=== PATIENT | female | born 1955 | race Caucasian/White ===

== ENCOUNTER 2017-08-02 20:17 | Inpatient (IN) | payer MEDICARE, OTHER ==
[2017-08-02] MEDS: SOD CHLORIDE 0.9% 1,000 ML IV ×2 (20:54→22:53)
[2017-08-02 21:50] LABS: WHITE BLOOD COUNT 7.9 10^3/ul (4.8-10.8)
[2017-08-02 21:50] LABS: ADD MAN DIFF? NO
[2017-08-02 21:51] LABS: BASOPHILS % 0.5 % (0.0-2.0); EOSINOPHILS # 0.1 10^3/ul (0.0-0.5); EOSINOPHILS % 1.1 % (0.0-7.0); HEMATOCRIT 34.3 % (37.0-47.0); HEMOGLOBIN 11.6 g/dl (12.0-16.0); LYMPHOCYTES % 25.1 % (15.0-51.0); MEAN CORPUSCULAR HEMOGLOBIN 31.4 pg (29.0-33.0); MEAN CORPUSCULAR HGB CONC 33.8 g/dl (32.0-37.0); MEAN PLATELET VOLUME 10.5 fl (7.4-10.4); MONOCYTE # 0.7 10^3/ul (0.3-0.9); MONOCYTES % 9.2 % (0.0-11.0); NEUTROPHIL # 5.1 10^3/ul (1.6-7.5); NEUTROPHILS % 63.6 % (39.0-77.0); PLATELET COUNT 204 10^3/UL (140-415); RED BLOOD COUNT 3.69 10^6/ul (4.20-5.40); RED CELL DISTRIBUTION WIDTH 12.1 % (11.5-14.5)
[2017-08-02 22:13] LABS: INR 1.05; PARTIAL THROMBOPLASTIN TIME 28.9 Sec (25.0-35.0); PROTIME 13.8 Sec (11.9-14.9); PT RATIO 1.1
[2017-08-02 22:16] LABS: LACTIC ACID 1.1 mmol/L (0.5-2.0)
[2017-08-02 22:20] LABS: ALANINE AMINOTRANSFERASE 30 IU/L (13-69); ALBUMIN 3.5 g/dl (3.3-4.9); ALBUMIN/GLOBULIN RATIO 1.09; ALKALINE PHOSPHATASE 67 IU/L (42-121); ANION GAP 12 (8-16); ASPARTATE AMINO TRANSFERASE 66 IU/L (15-46); BILIRUBIN,INDIRECT 0.5 mg/dl (0-1.1); BILIRUBIN,TOTAL 0.5 mg/dl (0.2-1.3); BLOOD UREA NITROGEN 32 mg/dl (7-20); CALCIUM 9.5 mg/dl (8.4-10.2); CARBON DIOXIDE 29 mmol/L (21-31); CHLORIDE 104 mmol/L (97-110); CREATININE 1.51 mg/dl (0.44-1.00); GLUCOSE 96 mg/dl (70-220); POTASSIUM 3.9 mmol/L (3.5-5.1); SODIUM 141 mmol/L (135-144); TOTAL PROTEIN 6.7 g/dl (6.1-8.1)
[2017-08-02 22:28] LABS: CREATINE KINASE 2448 IU/L (23-200)
[2017-08-02 22:32] LABS: CK INDEX 1.4
[2017-08-02 22:33] LABS: TROPONIN-I < 0.012 ng/ml (0.000-0.120)
[2017-08-02 22:37] LABS: FREE THYROXINE INDEX (Calc) 3.24 ug/ml (0.65-3.89); T3 UPTAKE 32.1 % (23.5-40.5); T4 (THYROXINE) 10.1 ug/dl (5.5-11.0)
[2017-08-02 22:38] LABS: URINE BLOOD (Dip) POC Trace-lysed (NEGATIVE); URINE GLUCOSE (Dip) POC Negative (NEGATIVE); URINE KETONES (Dip) POC Negative (NEGATIVE); URINE LEUKOCYTE EST (Dip) POC Negative (NEGATIVE); URINE NITRITE (Dip) POC Positive (NEGATIVE); URINE TOTAL PROTEIN POC Negative (NEGATIVE)
[2017-08-02] MEDS: LORAZEPAM 2 MG INJ IV ×2 (22:52→22:55)
[2017-08-02] MEDS ORDERED: ACETAMINOPHEN 325 MG TAB PO (23:00)
[2017-08-02] MEDS ORDERED: ONDANSETRON 4 MG INJ IV (23:00)
[2017-08-02] MEDS ORDERED: morphine 2 MG INJ IV (23:00)
[2017-08-02] MEDS ORDERED: HYDROCODONE/APAP (5/325) TAB PO (23:00)
[2017-08-02] MEDS ORDERED: NACL 0.9% 3 ML SYG IV (23:00)
[2017-08-02] MEDS ORDERED: ONDANSETRON 4 MG TAB PO (23:00)
[2017-08-02 23:05] LABS: ADD UMIC YES; UR ASCORBIC ACID NEGATIVE (NEGATIVE); UR BACTERIA FEW /HPF (NONE SEEN); UR BILIRUBIN (Dip) NEGATIVE (NEGATIVE); UR BLOOD (Dip) 1+ mg/dL (NEGATIVE); UR CLARITY SLIGHTLY CLOUDY (CLEAR); UR COLOR YELLOW (YELLOW); UR GLUCOSE (Dip) NEGATIVE (NEGATIVE); UR KETONES (Dip) NEGATIVE (NEGATIVE); UR LEUKOCYTE ESTERASE (Dip) NEGATIVE Leu/ul (NEGATIVE); UR MUCUS FEW /HPF (NONE SEEN); UR NITRITE (Dip) POSITIVE (NEGATIVE); UR RBC 0 /HPF (0-5); UR SPECIFIC GRAVITY (Dip) 1.016 (1.003-1.030); UR TOTAL PROTEIN (Dip) NEGATIVE (NEGATIVE); UR UROBILINOGEN (Dip) NEGATIVE (NEGATIVE); UR WBC 2 /HPF (0-5)
[2017-08-02] MEDS: CEFTRIAXONE 1 GM/50 ML (PMX) 50 ML IVPB (23:11)
[2017-08-03] MEDS: SOD CHLORIDE 0.9% 1,000 ML IV ×4 (01:25→17:11)
[2017-08-03 07:03] LABS: ADD MAN DIFF? NO
[2017-08-03 07:06] LABS: BASOPHIL # 0.1 10^3/ul (0.0-0.1); BASOPHILS % 0.7 % (0.0-2.0); EOSINOPHILS # 0.1 10^3/ul (0.0-0.5); EOSINOPHILS % 1.6 % (0.0-7.0); HEMATOCRIT 30.7 % (37.0-47.0); HEMOGLOBIN 10.4 g/dl (12.0-16.0); LYMPHOCYTES # 2.4 10^3/ul (0.8-2.9); LYMPHOCYTES % 34.5 % (15.0-51.0); MEAN CORPUSCULAR HEMOGLOBIN 31.5 pg (29.0-33.0); MEAN CORPUSCULAR HGB CONC 33.9 g/dl (32.0-37.0); MEAN PLATELET VOLUME 10.5 fl (7.4-10.4); MONOCYTE # 0.6 10^3/ul (0.3-0.9); MONOCYTES % 8.4 % (0.0-11.0); NEUTROPHIL # 3.7 10^3/ul (1.6-7.5); NEUTROPHILS % 54.4 % (39.0-77.0); PLATELET COUNT 178 10^3/UL (140-415)
[2017-08-03 07:06] LABS: WHITE BLOOD COUNT 6.8 10^3/ul (4.8-10.8)
[2017-08-03] MEDS ORDERED: PENDING SANTYL ORDER FOR WOUND CARE XX (07:30)
[2017-08-03 07:42] LABS: HEMOGLOBIN A1C 5.4 % (0-5.9)
[2017-08-03 07:43] LABS: ALANINE AMINOTRANSFERASE 31 IU/L (13-69); ALBUMIN 3.1 g/dl (3.3-4.9); ALBUMIN/GLOBULIN RATIO 0.96; ALKALINE PHOSPHATASE 60 IU/L (42-121); ANION GAP 12 (8-16); ASPARTATE AMINO TRANSFERASE 66 IU/L (15-46); BILIRUBIN,INDIRECT 0.7 mg/dl (0-1.1); BILIRUBIN,TOTAL 0.7 mg/dl (0.2-1.3); BLOOD UREA NITROGEN 23 mg/dl (7-20); CALCIUM 8.9 mg/dl (8.4-10.2); CARBON DIOXIDE 28 mmol/L (21-31); CHLORIDE 108 mmol/L (97-110); CHOL/HDL RATIO 3.8 RATIO; CHOLESTEROL 170 mg/dl (100-200); CREATININE 1.34 mg/dl (0.44-1.00); GLUCOSE 90 mg/dl (70-220); HDL CHOLESTEROL 44 mg/dl (35-98); LDL CHOLESTEROL,CALCULATED 107 mg/dl; MAGNESIUM 1.6 mg/dl (1.7-2.5); POTASSIUM 3.5 mmol/L (3.5-5.1); SODIUM 144 mmol/L (135-144); TOTAL PROTEIN 6.3 g/dl (6.1-8.1); TRIGLYCERIDES 97 mg/dl (0-149)
[2017-08-03 07:59] LABS: CREATINE KINASE 2253 IU/L (23-200)
[2017-08-03] MEDS: ENOXAPARIN 30 MG/0.3 ML SYG SC (09:11)
[2017-08-03] MEDS: ACETAMINOPHEN 325 MG TAB PO (13:37)
[2017-08-03 14:30] LABS: CREATINE KINASE 1598 IU/L (23-200)
[2017-08-03] MEDS ORDERED: morphine LIQ (10 MG/5 ML) CUP PO (15:30)
[2017-08-03] MEDS: ACETAMINOPHEN 650MG/20.3ML CUP PO (20:48)
[2017-08-03] MEDS: traZODone 50 MG TAB PO (21:45)
[2017-08-03] MEDS: POLYETHYLENE GLYCOL 17 GM PACKET PO (21:45)
[2017-08-03] MEDS: CEFTRIAXONE 1 GM/50 ML (PMX) 50 ML IVPB (21:45)
[2017-08-03 23:03] LABS: CREATINE KINASE 1512 IU/L (23-200)
[2017-08-04] MEDS: MAGNESIUM SULFATE 2 GM/50 ML 50 ML IVPB (00:29)
[2017-08-04] MEDS: SOD CHLORIDE 0.9% 1,000 ML IV ×3 (00:32→20:54)
[2017-08-04] MEDS: POTASSIUM CHLORIDE 100 ML IVPB ×2 (01:30→03:50)
[2017-08-04 08:07] LABS: CREATINE KINASE 1531 IU/L (23-200)
[2017-08-04] MEDS: ENOXAPARIN 30 MG/0.3 ML SYG SC (09:28)
[2017-08-04] MEDS: [UNRECOGNIZED DRUG - REMARK] XX ×2 (20:46)
[2017-08-04] MEDS: traZODone 50 MG TAB PO (20:53)
[2017-08-04] MEDS: QUETIAPINE 100 MG TAB PO (20:54)
[2017-08-04] MEDS: CEFTRIAXONE 1 GM/50 ML (PMX) 50 ML IVPB (20:54)
[2017-08-04] MEDS: POLYETHYLENE GLYCOL 17 GM PACKET PO (20:58)
[2017-08-04] MEDS: ACETAMINOPHEN 650MG/20.3ML CUP PO (20:58)
[2017-08-04] MEDS ORDERED: QUETIAPINE 25 MG TAB PO (21:00)
[2017-08-04] MEDS ORDERED: GABAPENTIN 300 MG CAP PO (21:00)
[2017-08-05] MEDS: [UNRECOGNIZED DRUG - REMARK] XX (05:43)
[2017-08-05 07:16] LABS: ANION GAP 15 (8-16); BLOOD UREA NITROGEN 16 mg/dl (7-20); CALCIUM 8.8 mg/dl (8.4-10.2); CARBON DIOXIDE 24 mmol/L (21-31); CHLORIDE 108 mmol/L (97-110); CREATINE KINASE 800 IU/L (23-200); CREATININE 1.07 mg/dl (0.44-1.00); GLUCOSE 94 mg/dl (70-220); MAGNESIUM 1.6 mg/dl (1.7-2.5); PHOSPHORUS 3.6 mg/dl (2.5-4.9); POTASSIUM 3.7 mmol/L (3.5-5.1); SODIUM 143 mmol/L (135-144)
[2017-08-05] MEDS: SOD CHLORIDE 0.9% 1,000 ML IV (07:37)
[2017-08-05] MEDS: MAGNESIUM OXIDE 400 MG TAB PO (08:57)
[2017-08-05] MEDS: QUETIAPINE 100 MG TAB PO ×2 (08:57→12:25)
[2017-08-05] MEDS: ASPIRIN (EC) 81 MG TAB PO (08:57)
[2017-08-05] MEDS: GABAPENTIN 300 MG CAP PO (08:57)
[2017-08-05] MEDS: ATENOLOL 25 MG TAB PO (08:57)
[2017-08-05] MEDS: FLUOXETINE 20 MG CAP PO (08:57)
[2017-08-05] MEDS ORDERED: SIMVASTATIN PO (09:00)
[2017-08-05] MEDS: ENOXAPARIN 30 MG/0.3 ML SYG SC (09:02)
[2017-08-05] MEDS: CEPHALEXIN 500 MG CAP PO ×2 (13:50→22:06)
[2017-08-05] MEDS: ACETAMINOPHEN 650MG/20.3ML CUP PO (19:56)
[2017-08-05] MEDS: BALSAM PERU/CASTOR OIL 60 GM TUBE TOP (20:27)
[2017-08-05] MEDS: POLYETHYLENE GLYCOL 17 GM PACKET PO (20:28)
[2017-08-05] MEDS: ATORVASTATIN 10 MG TAB PO (20:28)
[2017-08-05] MEDS: traZODone 50 MG TAB PO (20:28)
[2017-08-06 05:54] LABS: ANION GAP 12 (8-16); BLOOD UREA NITROGEN 13 mg/dl (7-20); CALCIUM 9.3 mg/dl (8.4-10.2); CARBON DIOXIDE 31 mmol/L (21-31); CHLORIDE 106 mmol/L (97-110); CREATINE KINASE 564 IU/L (23-200); CREATININE 1.19 mg/dl (0.44-1.00); GLUCOSE 85 mg/dl (70-220); MAGNESIUM 1.6 mg/dl (1.7-2.5); PHOSPHORUS 4.2 mg/dl (2.5-4.9); POTASSIUM 3.9 mmol/L (3.5-5.1); SODIUM 145 mmol/L (135-144)
[2017-08-06] MEDS: CEPHALEXIN 500 MG CAP PO (06:19)
[2017-08-06] MEDS: MAGNESIUM OXIDE 400 MG TAB PO (07:51)
[2017-08-06] MEDS: ATENOLOL 25 MG TAB PO (08:29)
[2017-08-06] MEDS: FLUOXETINE 20 MG CAP PO (08:29)
[2017-08-06] MEDS: GABAPENTIN 300 MG CAP PO (08:29)
[2017-08-06] MEDS: BALSAM PERU/CASTOR OIL 60 GM TUBE TOP (08:30)
[2017-08-06] MEDS: ASPIRIN (EC) 81 MG TAB PO (08:30)
[2017-08-06] MEDS: ENOXAPARIN 30 MG/0.3 ML SYG SC (08:31)
[2017-08-06] MEDS ORDERED: HYDROCHLOROTHIAZIDE 25 MG TAB PO (11:40)
== END 2017-08-06 13:19 | disposition home or self-care (01) | DRG 683 ==
LOC: TEL 22:43 → MS1 08-05 17:06 → E/R 20:17
DX: N17.9 Acute kidney failure, unspecified (principal); M62.82 Rhabdomyolysis; N39.0 Urinary tract infection, site not specified; F01.50 Vascular dementia, unspecified severity, without behavioral disturbance, psychotic disturbance, mood disturbance, and anxiety; G30.9 Alzheimer's disease, unspecified; F02.80 Dementia in other diseases classified elsewhere, unspecified severity, without behavioral disturbance, psychotic disturbance, mood disturbance, and anxiety; E86.0 Dehydration; N18.9 Chronic kidney disease, unspecified; B96.1 Klebsiella pneumoniae [K. pneumoniae] as the cause of diseases classified elsewhere; R62.7 Adult failure to thrive; E78.5 Hyperlipidemia, unspecified; I12.9 Hypertensive chronic kidney disease with stage 1 through stage 4 chronic kidney disease, or unspecified chronic kidney disease; T43.595A Adverse effect of other antipsychotics and neuroleptics, initial encounter; T44.1X5A Adverse effect of other parasympathomimetics [cholinergics], initial encounter; T43.8X5A Adverse effect of other psychotropic drugs, initial encounter; Y92.019 Unspecified place in single-family (private) house as the place of occurrence of the external cause
CPT/HCPCS: 70450; 71045; 80048; 80053; 80061; 81001; 81003; 82550; 82553; 83036; 83605; 83735; 84100; 84436; 84443; 84479; 84484; 85025; 85610; 85730; 87040; 87086; 92610; 93005; 96374; 96375; 99285-25

== ENCOUNTER 2017-11-08 19:47 | Inpatient (IN) | payer MEDICARE, OTHER ==
[2017-11-08 20:05] LABS: ADD MAN DIFF? NO
[2017-11-08 20:10] LABS: WHITE BLOOD COUNT 13.3 10^3/ul (4.8-10.8)
[2017-11-08 20:10] LABS: BASOPHIL # 0.1 10^3/ul (0.0-0.1); BASOPHILS % 0.4 % (0.0-2.0); EOSINOPHILS # 0.1 10^3/ul (0.0-0.5); HEMATOCRIT 44.3 % (37.0-47.0); HEMOGLOBIN 15.1 g/dl (12.0-16.0); LYMPHOCYTES # 2.8 10^3/ul (0.8-2.9); LYMPHOCYTES % 20.8 % (15.0-51.0); MEAN CORPUSCULAR HEMOGLOBIN 30.3 pg (29.0-33.0); MEAN CORPUSCULAR HGB CONC 34.1 g/dl (32.0-37.0); MEAN CORPUSCULAR VOLUME 88.8 fl (82.0-101.0); MEAN PLATELET VOLUME 10.2 fl (7.4-10.4); MONOCYTE # 1.1 10^3/ul (0.3-0.9); MONOCYTES % 8.1 % (0.0-11.0); NEUTROPHIL # 9.2 10^3/ul (1.6-7.5); NEUTROPHILS % 69.2 % (39.0-77.0); PLATELET COUNT 260 10^3/UL (140-415); RED BLOOD COUNT 4.99 10^6/ul (4.20-5.40); RED CELL DISTRIBUTION WIDTH 12.2 % (11.5-14.5)
[2017-11-08 20:24] LABS: INR 1.13; PARTIAL THROMBOPLASTIN TIME 27.1 Sec (25.0-35.0); PROTIME 14.7 Sec (11.9-14.9); PT RATIO 1.1
[2017-11-08 20:27] LABS: ANION GAP 20 (8-16); BLOOD UREA NITROGEN 70 mg/dl (7-20); CALCIUM 9.9 mg/dl (8.4-10.2); CARBON DIOXIDE 23 mmol/L (21-31); CHLORIDE 105 mmol/L (97-110); CREATININE 5.05 mg/dl (0.44-1.00); GLUCOSE 123 mg/dl (70-220); POTASSIUM 3.9 mmol/L (3.5-5.1); SODIUM 144 mmol/L (135-144)
[2017-11-08] MEDS: CEFEPIME 2GM/50 ML (PMX) 50 ML IVPB (20:28)
[2017-11-08] MEDS: LORAZEPAM 2 MG INJ IV (20:28)
[2017-11-08 20:34] LABS: LACTIC ACID 1.2 mmol/L (0.5-2.0)
[2017-11-08] MEDS: VANCOMYCIN 1 GM (PMX) 250 ML IVPB (20:36)
[2017-11-08 20:38] LABS: TROPONIN-I < 0.012 ng/ml (0.000-0.120)
[2017-11-08 21:50] LABS: ADD UMIC YES; UR ASCORBIC ACID NEGATIVE (NEGATIVE); UR BILIRUBIN (Dip) NEGATIVE (NEGATIVE); UR BLOOD (Dip) 1+ mg/dL (NEGATIVE); UR CLARITY SLIGHTLY CLOUDY (CLEAR); UR COLOR YELLOW (YELLOW); UR GLUCOSE (Dip) NEGATIVE (NEGATIVE); UR KETONES (Dip) NEGATIVE (NEGATIVE); UR LEUKOCYTE ESTERASE (Dip) NEGATIVE Leu/ul (NEGATIVE); UR MUCUS FEW /HPF (NONE SEEN); UR NITRITE (Dip) NEGATIVE (NEGATIVE); UR RBC 2 /HPF (0-5); UR SPECIFIC GRAVITY (Dip) 1.012 (1.003-1.030); UR SQUAMOUS EPITHELIAL CELL FEW /HPF (FEW); UR TOTAL PROTEIN (Dip) NEGATIVE (NEGATIVE); UR UROBILINOGEN (Dip) NEGATIVE (NEGATIVE); UR WBC 1 /HPF (0-5)
[2017-11-08] MEDS: SOD CHLORIDE 0.9% 1,000 ML IV ×2 (22:16→22:38)
[2017-11-08 22:17] LABS: LACTIC ACID 3.5 mmol/L (0.5-2.0)
[2017-11-08] MEDS ORDERED: NACL 0.9% 3 ML SYG IV (22:30)
[2017-11-08] MEDS ORDERED: ACETAMINOPHEN 325 MG TAB PO ×2 (22:30)
[2017-11-08] MEDS ORDERED: ONDANSETRON 4 MG INJ IV ×2 (22:30)
[2017-11-08 22:33] LABS: CREATINE KINASE 292 IU/L (23-200)
[2017-11-09 02:44] LABS: LACTIC ACID 1.4 mmol/L (0.5-2.0)
[2017-11-09] MEDS: SOD CHLORIDE 0.9% 1,000 ML IV ×2 (04:15→12:27)
[2017-11-09] MEDS ORDERED: VANCOMYCIN IV PER PHARMACY XX (06:30)
[2017-11-09] MEDS: CEFTRIAXONE 2 GM/50 ML (PMX) 50 ML IVPB (07:01)
[2017-11-09 07:07] LABS: ADD MAN DIFF? NO
[2017-11-09 07:13] LABS: WHITE BLOOD COUNT 10.7 10^3/ul (4.8-10.8)
[2017-11-09 07:13] LABS: BASOPHILS % 0.4 % (0.0-2.0); EOSINOPHILS % 0.4 % (0.0-7.0); HEMATOCRIT 37.3 % (37.0-47.0); HEMOGLOBIN 12.6 g/dl (12.0-16.0); LYMPHOCYTES # 2.1 10^3/ul (0.8-2.9); LYMPHOCYTES % 19.6 % (15.0-51.0); MEAN CORPUSCULAR HEMOGLOBIN 31.3 pg (29.0-33.0); MEAN CORPUSCULAR HGB CONC 33.8 g/dl (32.0-37.0); MEAN CORPUSCULAR VOLUME 92.6 fl (82.0-101.0); MEAN PLATELET VOLUME 10.8 fl (7.4-10.4); MONOCYTES % 8.9 % (0.0-11.0); NEUTROPHIL # 7.5 10^3/ul (1.6-7.5); NEUTROPHILS % 70.4 % (39.0-77.0); PLATELET COUNT 206 10^3/UL (140-415); RED BLOOD COUNT 4.03 10^6/ul (4.20-5.40); RED CELL DISTRIBUTION WIDTH 12.2 % (11.5-14.5)
[2017-11-09 07:43] LABS: ALANINE AMINOTRANSFERASE 25 IU/L (13-69); ALBUMIN 3.3 g/dl (3.3-4.9); ALBUMIN/GLOBULIN RATIO 0.94; ALKALINE PHOSPHATASE 51 IU/L (42-121); ANION GAP 15 (8-16); ASPARTATE AMINO TRANSFERASE 33 IU/L (15-46); BILIRUBIN,INDIRECT 0.8 mg/dl (0-1.1); BILIRUBIN,TOTAL 0.8 mg/dl (0.2-1.3); BLOOD UREA NITROGEN 72 mg/dl (7-20); CALCIUM 8.9 mg/dl (8.4-10.2); CARBON DIOXIDE 25 mmol/L (21-31); CHLORIDE 107 mmol/L (97-110); CREATININE 4.49 mg/dl (0.44-1.00); GLUCOSE 105 mg/dl (70-220); POTASSIUM 4.3 mmol/L (3.5-5.1); SODIUM 143 mmol/L (135-144); TOTAL PROTEIN 6.8 g/dl (6.1-8.1)
[2017-11-09] MEDS: ATENOLOL 25 MG TAB PO (08:17)
[2017-11-09] MEDS: MEMANTINE 10 MG TAB PO (08:17)
[2017-11-09] MEDS: FAMOTIDINE 20 MG TAB PO (08:17)
[2017-11-09] MEDS: FLUOXETINE 20 MG CAP PO (08:17)
[2017-11-09] MEDS: ASPIRIN (EC) 81 MG TAB PO (08:17)
[2017-11-09 08:18] LABS: LACTIC ACID 1.2 mmol/L (0.5-2.0)
[2017-11-09 11:12] LABS: TROPONIN-I < 0.012 ng/ml (0.000-0.120)
[2017-11-09 11:12] LABS: SODIUM,URINE RANDOM 123 mmol/L (30-90)
[2017-11-09 11:14] LABS: LACTIC ACID 1.3 mmol/L (0.5-2.0)
[2017-11-09 11:16] LABS: CREATININE,URINE RANDOM 98.55 mg/dl (20-320); PROTEIN/CREAT RATIO 0.12 RATIO
[2017-11-09] MEDS: VANCOMYCIN 750 MG in SOD CHLORIDE 0.9% 150 ML IVPB (12:28)
[2017-11-09] MEDS: PIPER-TAZO 2.25 GM (PMX) 50 ML IVPB ×2 (15:09→22:36)
[2017-11-09 16:50] LABS: TROPONIN-I < 0.012 ng/ml (0.000-0.120)
[2017-11-09] MEDS: ATORVASTATIN 10 MG TAB PO (22:33)
[2017-11-10] MEDS: SOD CHLORIDE 0.9% 1,000 ML IV ×3 (00:55→20:49)
[2017-11-10] MEDS: PIPER-TAZO 2.25 GM (PMX) 50 ML IVPB ×3 (05:47→20:48)
[2017-11-10 08:07] LABS: URIC ACID 8.8 mg/dl (3.1-7.9)
[2017-11-10 08:07] LABS: CREATINE KINASE 498 IU/L (23-200)
[2017-11-10] MEDS: ATENOLOL 25 MG TAB PO (08:23)
[2017-11-10] MEDS: ASPIRIN (EC) 81 MG TAB PO (08:23)
[2017-11-10] MEDS: FAMOTIDINE 20 MG TAB PO (08:23)
[2017-11-10 09:25] LABS: ADD MAN DIFF? NO
[2017-11-10 09:29] LABS: WHITE BLOOD COUNT 7.6 10^3/ul (4.8-10.8)
[2017-11-10 09:29] LABS: BASOPHIL # 0.1 10^3/ul (0.0-0.1); BASOPHILS % 0.8 % (0.0-2.0); EOSINOPHILS # 0.1 10^3/ul (0.0-0.5); EOSINOPHILS % 1.5 % (0.0-7.0); HEMATOCRIT 35.8 % (37.0-47.0); HEMOGLOBIN 11.6 g/dl (12.0-16.0); LYMPHOCYTES # 1.9 10^3/ul (0.8-2.9); LYMPHOCYTES % 24.9 % (15.0-51.0); MEAN CORPUSCULAR HEMOGLOBIN 30.6 pg (29.0-33.0); MEAN CORPUSCULAR HGB CONC 32.4 g/dl (32.0-37.0); MEAN CORPUSCULAR VOLUME 94.5 fl (82.0-101.0); MEAN PLATELET VOLUME 11.2 fl (7.4-10.4); MONOCYTE # 0.6 10^3/ul (0.3-0.9); MONOCYTES % 8.3 % (0.0-11.0); NEUTROPHIL # 4.9 10^3/ul (1.6-7.5); NEUTROPHILS % 64.1 % (39.0-77.0); PLATELET COUNT 182 10^3/UL (140-415); RED BLOOD COUNT 3.79 10^6/ul (4.20-5.40); RED CELL DISTRIBUTION WIDTH 12.1 % (11.5-14.5)
[2017-11-10 09:37] LABS: ANION GAP 15 (8-16); BLOOD UREA NITROGEN 63 mg/dl (7-20); CARBON DIOXIDE 20 mmol/L (21-31); CHLORIDE 112 mmol/L (97-110); CREATININE 3.45 mg/dl (0.44-1.00); GLUCOSE 99 mg/dl (70-220); POTASSIUM 3.8 mmol/L (3.5-5.1); SODIUM 143 mmol/L (135-144)
[2017-11-10] MEDS: BISACODYL 10 MG SUPP PR (18:35)
[2017-11-10] MEDS: DOCUSATE SODIUM 100 MG CAP PO (20:49)
[2017-11-10] MEDS: ATORVASTATIN 10 MG TAB PO (20:49)
[2017-11-11] MEDS: SOD CHLORIDE 0.9% 1,000 ML IV ×2 (03:35→20:07)
[2017-11-11] MEDS: PIPER-TAZO 2.25 GM (PMX) 50 ML IVPB ×3 (05:02→20:06)
[2017-11-11 06:34] LABS: ADD MAN DIFF? NO
[2017-11-11 06:41] LABS: WHITE BLOOD COUNT 7.1 10^3/ul (4.8-10.8)
[2017-11-11 06:41] LABS: BASOPHILS % 0.4 % (0.0-2.0); EOSINOPHILS # 0.1 10^3/ul (0.0-0.5); HEMATOCRIT 33.6 % (37.0-47.0); HEMOGLOBIN 11.1 g/dl (12.0-16.0); LYMPHOCYTES # 1.4 10^3/ul (0.8-2.9); LYMPHOCYTES % 19.7 % (15.0-51.0); MEAN CORPUSCULAR HEMOGLOBIN 30.2 pg (29.0-33.0); MEAN CORPUSCULAR VOLUME 91.3 fl (82.0-101.0); MEAN PLATELET VOLUME 10.9 fl (7.4-10.4); MONOCYTE # 0.6 10^3/ul (0.3-0.9); MONOCYTES % 7.8 % (0.0-11.0); NEUTROPHILS % 69.8 % (39.0-77.0); PLATELET COUNT 191 10^3/UL (140-415); RED BLOOD COUNT 3.68 10^6/ul (4.20-5.40); RED CELL DISTRIBUTION WIDTH 12.1 % (11.5-14.5)
[2017-11-11 06:57] LABS: PHOSPHORUS 3.4 mg/dl (2.5-4.9)
[2017-11-11 06:57] LABS: MAGNESIUM 1.5 mg/dl (1.7-2.5)
[2017-11-11 07:00] LABS: ALANINE AMINOTRANSFERASE 23 IU/L (13-69); ALBUMIN 3.6 g/dl (3.3-4.9); ALBUMIN/GLOBULIN RATIO 1.02; ALKALINE PHOSPHATASE 57 IU/L (42-121); ANION GAP 13 (8-16); ASPARTATE AMINO TRANSFERASE 36 IU/L (15-46); BILIRUBIN,INDIRECT 0.5 mg/dl (0-1.1); BILIRUBIN,TOTAL 0.5 mg/dl (0.2-1.3); BLOOD UREA NITROGEN 45 mg/dl (7-20); CALCIUM 9.2 mg/dl (8.4-10.2); CARBON DIOXIDE 24 mmol/L (21-31); CHLORIDE 111 mmol/L (97-110); CREATININE 2.68 mg/dl (0.44-1.00); GLUCOSE 107 mg/dl (70-220); POTASSIUM 3.5 mmol/L (3.5-5.1); SODIUM 144 mmol/L (135-144); TOTAL PROTEIN 7.1 g/dl (6.1-8.1)
[2017-11-11 07:01] LABS: INR 1.08; PROTIME 14.1 Sec (11.9-14.9); PT RATIO 1.1
[2017-11-11 07:02] LABS: PARTIAL THROMBOPLASTIN TIME 28.6 Sec (25.0-35.0)
[2017-11-11 07:04] LABS: VANCOMYCIN,RANDOM 10.7 ug/ml
[2017-11-11] MEDS: ASPIRIN (EC) 81 MG TAB PO (08:27)
[2017-11-11] MEDS: DOCUSATE SODIUM 100 MG CAP PO ×2 (08:27→20:07)
[2017-11-11] MEDS: FAMOTIDINE 20 MG TAB PO (08:27)
[2017-11-11] MEDS: ATENOLOL 25 MG TAB PO (08:28)
[2017-11-11] MEDS: MAGNESIUM SULFATE 2 GM/50 ML 50 ML IVPB (11:02)
[2017-11-11] MEDS: VANCOMYCIN 750 MG in SOD CHLORIDE 0.9% 150 ML IVPB (13:21)
[2017-11-11] MEDS: ATORVASTATIN 10 MG TAB PO (20:06)
[2017-11-11] MEDS: traZODone 50 MG TAB PO (21:19)
[2017-11-12] MEDS: PIPER-TAZO 2.25 GM (PMX) 50 ML IVPB ×2 (05:09→13:12)
[2017-11-12 07:06] LABS: CREATININE 2.06 mg/dl (0.44-1.00)
[2017-11-12 07:06] LABS: BLOOD UREA NITROGEN 33 mg/dl (7-20)
[2017-11-12] MEDS: ASPIRIN (EC) 81 MG TAB PO (08:37)
[2017-11-12] MEDS: FAMOTIDINE 20 MG TAB PO (08:37)
[2017-11-12] MEDS: ATENOLOL 25 MG TAB PO (08:38)
[2017-11-12] MEDS: DOCUSATE SODIUM 100 MG CAP PO (08:38)
== END 2017-11-12 14:59 | disposition home health service (06) | DRG 871 ==
LOC: E/R 19:47 → TEL 22:24
DX: A41.9 Sepsis, unspecified organism (principal); G93.41 Metabolic encephalopathy; N17.0 Acute kidney failure with tubular necrosis; J96.21 Acute and chronic respiratory failure with hypoxia; Z99.81 Dependence on supplemental oxygen; G25.3 Myoclonus; F02.80 Dementia in other diseases classified elsewhere, unspecified severity, without behavioral disturbance, psychotic disturbance, mood disturbance, and anxiety; G30.9 Alzheimer's disease, unspecified; R65.20 Severe sepsis without septic shock; I12.9 Hypertensive chronic kidney disease with stage 1 through stage 4 chronic kidney disease, or unspecified chronic kidney disease; N18.9 Chronic kidney disease, unspecified; E78.5 Hyperlipidemia, unspecified; E86.0 Dehydration
CPT/HCPCS: 36415; 70450; 71045; 76775; 80048; 80053; 80202; 81001; 81003; 82550; 82565; 82570; 82962; 83605; 83735; 84100; 84300; 84484; 84520; 84560; 85025; 85610; 85730; 86850; 86900; 86901; 87040; 87086; 89190; 92526; 92610; 93005; 96365; 96366; 96368; 96375; 99291-25

== ENCOUNTER 2017-11-16 08:51 | Inpatient (IN) | payer MEDICARE, OTHER ==
[2017-11-16 09:24] LABS: ADD MAN DIFF? NO
[2017-11-16 09:27] LABS: BASOPHILS % 0.4 % (0.0-2.0); EOSINOPHILS # 0.3 10^3/ul (0.0-0.5); HEMATOCRIT 34.9 % (37.0-47.0); HEMOGLOBIN 11.6 g/dl (12.0-16.0); LYMPHOCYTES # 1.8 10^3/ul (0.8-2.9); LYMPHOCYTES % 18.6 % (15.0-51.0); MEAN CORPUSCULAR HEMOGLOBIN 30.9 pg (29.0-33.0); MEAN CORPUSCULAR HGB CONC 33.2 g/dl (32.0-37.0); MEAN CORPUSCULAR VOLUME 92.8 fl (82.0-101.0); MEAN PLATELET VOLUME 10.4 fl (7.4-10.4); MONOCYTE # 0.6 10^3/ul (0.3-0.9); MONOCYTES % 6.5 % (0.0-11.0); NEUTROPHIL # 6.7 10^3/ul (1.6-7.5); PLATELET COUNT 228 10^3/UL (140-415); RED BLOOD COUNT 3.76 10^6/ul (4.20-5.40); RED CELL DISTRIBUTION WIDTH 12.3 % (11.5-14.5)
[2017-11-16 09:27] LABS: WHITE BLOOD COUNT 9.6 10^3/ul (4.8-10.8)
[2017-11-16 09:29] LABS: ADD UMIC YES; UR ASCORBIC ACID NEGATIVE (NEGATIVE); UR BILIRUBIN (Dip) NEGATIVE (NEGATIVE); UR BLOOD (Dip) 2+ mg/dL (NEGATIVE); UR CLARITY CLEAR (CLEAR); UR COLOR YELLOW (YELLOW); UR GLUCOSE (Dip) NEGATIVE (NEGATIVE); UR KETONES (Dip) NEGATIVE (NEGATIVE); UR LEUKOCYTE ESTERASE (Dip) NEGATIVE Leu/ul (NEGATIVE); UR MUCUS FEW /HPF (NONE SEEN); UR NITRITE (Dip) NEGATIVE (NEGATIVE); UR RBC 1 /HPF (0-5); UR SPECIFIC GRAVITY (Dip) 1.017 (1.003-1.030); UR TOTAL PROTEIN (Dip) NEGATIVE (NEGATIVE); UR UROBILINOGEN (Dip) NEGATIVE (NEGATIVE); UR WBC 6 /HPF (0-5)
[2017-11-16 09:46] LABS: INR 0.97
[2017-11-16] MEDS: SOD CHLORIDE 0.9% 1,000 ML IV ×2 (09:49→15:57)
[2017-11-16 09:54] LABS: ALANINE AMINOTRANSFERASE 15 IU/L (13-69); ALBUMIN 3.5 g/dl (3.3-4.9); ALBUMIN/GLOBULIN RATIO 0.97; ALKALINE PHOSPHATASE 53 IU/L (42-121); ANION GAP 12 (8-16); ASPARTATE AMINO TRANSFERASE 42 IU/L (15-46); BILIRUBIN,INDIRECT 0.5 mg/dl (0-1.1); BILIRUBIN,TOTAL 0.5 mg/dl (0.2-1.3); BLOOD UREA NITROGEN 23 mg/dl (7-20); CALCIUM 9.3 mg/dl (8.4-10.2); CARBON DIOXIDE 25 mmol/L (21-31); CHLORIDE 109 mmol/L (97-110); CREATININE 1.54 mg/dl (0.44-1.00); GLUCOSE 86 mg/dl (70-220); POTASSIUM 4.4 mmol/L (3.5-5.1); SODIUM 142 mmol/L (135-144); TOTAL PROTEIN 7.1 g/dl (6.1-8.1)
[2017-11-16 09:56] LABS: LACTIC ACID 2.3 mmol/L (0.5-2.0)
[2017-11-16 10:04] LABS: TROPONIN-I < 0.012 ng/ml (0.000-0.120)
[2017-11-16] MEDS: CEFTRIAXONE 1 GM/50 ML (PMX) 50 ML IVPB (10:16)
[2017-11-16] MEDS ORDERED: LORAZEPAM 2 MG INJ IV (10:30)
[2017-11-16] MEDS: SODIUM CHLORIDE 0.9% 1L BAG IV* (10:35)
[2017-11-16] MEDS ORDERED: VANCOMYCIN IV PER PHARMACY XX (14:00)
[2017-11-16 15:17] LABS: CREATINE KINASE 553 IU/L (23-200)
[2017-11-16 15:26] LABS: CK-MB 5.44 ng/ml (0.0-2.4); TROPONIN-I < 0.012 ng/ml (0.000-0.120)
[2017-11-16] MEDS: CEFEPIME 1GM/50 ML (PMX) 50 ML IVPB ×2 (15:56→23:26)
[2017-11-16 16:40] LABS: LACTIC ACID 1.3 mmol/L (0.5-2.0)
[2017-11-16] MEDS: VANCOMYCIN 1.75 GM in SOD CHLORIDE 0.9% 500 ML IVPB (17:06)
[2017-11-16] MEDS: LORAZEPAM 2 MG INJ IV (22:50)
[2017-11-16] MEDS: ATORVASTATIN 10 MG TAB PO (23:26)
[2017-11-16] MEDS: traZODone 50 MG TAB PO (23:26)
[2017-11-16] MEDS: DOCUSATE SODIUM 100 MG CAP PO (23:27)
[2017-11-17 01:13] LABS: CREATINE KINASE 432 IU/L (23-200)
[2017-11-17 01:26] LABS: CK INDEX 0.7; CK-MB 2.84 ng/ml (0.0-2.4); TROPONIN-I < 0.012 ng/ml (0.000-0.120)
[2017-11-17] MEDS: SOD CHLORIDE 0.9% 1,000 ML IV ×2 (02:30→13:03)
[2017-11-17 03:50] LABS: CREATINE KINASE 387 IU/L (23-200)
[2017-11-17] MEDS ORDERED: PENDING SANTYL ORDER FOR WOUND CARE XX (04:00)
[2017-11-17 04:03] LABS: CK INDEX 0.7; CK-MB 2.56 ng/ml (0.0-2.4); TROPONIN-I < 0.012 ng/ml (0.000-0.120)
[2017-11-17 06:31] LABS: ADD MAN DIFF? NO
[2017-11-17 06:40] LABS: BASOPHIL # 0.1 10^3/ul (0.0-0.1); BASOPHILS % 0.7 % (0.0-2.0); EOSINOPHILS # 0.2 10^3/ul (0.0-0.5); EOSINOPHILS % 2.9 % (0.0-7.0); HEMATOCRIT 30.8 % (37.0-47.0); HEMOGLOBIN 10.1 g/dl (12.0-16.0); LYMPHOCYTES % 28.2 % (15.0-51.0); MEAN CORPUSCULAR HEMOGLOBIN 29.9 pg (29.0-33.0); MEAN CORPUSCULAR HGB CONC 32.8 g/dl (32.0-37.0); MEAN CORPUSCULAR VOLUME 91.1 fl (82.0-101.0); MEAN PLATELET VOLUME 10.5 fl (7.4-10.4); MONOCYTE # 0.6 10^3/ul (0.3-0.9); MONOCYTES % 8.3 % (0.0-11.0); NEUTROPHIL # 4.1 10^3/ul (1.6-7.5); NEUTROPHILS % 59.3 % (39.0-77.0); PLATELET COUNT 198 10^3/UL (140-415); RED BLOOD COUNT 3.38 10^6/ul (4.20-5.40); RED CELL DISTRIBUTION WIDTH 12.2 % (11.5-14.5)
[2017-11-17 07:03] LABS: LACTIC ACID 1.1 mmol/L (0.5-2.0)
[2017-11-17] MEDS: DOCUSATE SODIUM 100 MG CAP PO ×2 (08:43→21:08)
[2017-11-17] MEDS: CEFEPIME 1GM/50 ML (PMX) 50 ML IVPB ×2 (08:43→21:08)
[2017-11-17] MEDS: ASPIRIN (EC) 81 MG TAB PO (08:43)
[2017-11-17] MEDS: ATENOLOL 25 MG TAB PO (08:44)
[2017-11-17] MEDS: LISINOPRIL 20 MG TAB PO (08:44)
[2017-11-17 09:23] LABS: ANION GAP 11 (8-16); BLOOD UREA NITROGEN 18 mg/dl (7-20); CARBON DIOXIDE 22 mmol/L (21-31); CHLORIDE 113 mmol/L (97-110); CREATININE 1.38 mg/dl (0.44-1.00); GLUCOSE 85 mg/dl (70-220); MAGNESIUM 1.4 mg/dl (1.7-2.5); POTASSIUM 4.1 mmol/L (3.5-5.1); SODIUM 142 mmol/L (135-144)
[2017-11-17 10:50] LABS: ANION GAP 12 (8-16); BLOOD UREA NITROGEN 17 mg/dl (7-20); CARBON DIOXIDE 23 mmol/L (21-31); CHLORIDE 109 mmol/L (97-110); CREATININE 1.38 mg/dl (0.44-1.00); GLUCOSE 96 mg/dl (70-220); POTASSIUM 3.6 mmol/L (3.5-5.1); SODIUM 140 mmol/L (135-144)
[2017-11-17] MEDS: ACETAMINOPHEN 650MG/20.3ML CUP PO (13:02)
[2017-11-17] MEDS: CLOTRIMAZOLE 1% 30 GM CR TOP ×2 (13:30→21:08)
[2017-11-17] MEDS: MAGNESIUM SULFATE 2 GM/50 ML 50 ML IVPB (14:03)
[2017-11-17] MEDS: VANCOMYCIN 1.5 GM in SOD CHLORIDE 0.9% 250 ML IVPB (16:38)
[2017-11-17] MEDS: ATORVASTATIN 10 MG TAB PO (21:08)
[2017-11-17] MEDS: traZODone 50 MG TAB PO (21:08)
[2017-11-18] MEDS: SOD CHLORIDE 0.9% 1,000 ML IV ×3 (03:30→11:21)
[2017-11-18 06:48] LABS: ADD MAN DIFF? NO
[2017-11-18 06:54] LABS: WHITE BLOOD COUNT 7.4 10^3/ul (4.8-10.8)
[2017-11-18 06:54] LABS: BASOPHILS % 0.5 % (0.0-2.0); EOSINOPHILS # 0.2 10^3/ul (0.0-0.5); EOSINOPHILS % 2.9 % (0.0-7.0); HEMATOCRIT 32.2 % (37.0-47.0); HEMOGLOBIN 10.9 g/dl (12.0-16.0); LYMPHOCYTES % 27.4 % (15.0-51.0); MEAN CORPUSCULAR HEMOGLOBIN 30.6 pg (29.0-33.0); MEAN CORPUSCULAR HGB CONC 33.9 g/dl (32.0-37.0); MEAN CORPUSCULAR VOLUME 90.4 fl (82.0-101.0); MEAN PLATELET VOLUME 10.4 fl (7.4-10.4); MONOCYTE # 0.6 10^3/ul (0.3-0.9); MONOCYTES % 7.7 % (0.0-11.0); NEUTROPHIL # 4.5 10^3/ul (1.6-7.5); NEUTROPHILS % 61.1 % (39.0-77.0); PLATELET COUNT 216 10^3/UL (140-415); RED BLOOD COUNT 3.56 10^6/ul (4.20-5.40)
[2017-11-18 07:16] LABS: ANION GAP 12 (8-16); BLOOD UREA NITROGEN 17 mg/dl (7-20); CARBON DIOXIDE 24 mmol/L (21-31); CHLORIDE 110 mmol/L (97-110); GLUCOSE 93 mg/dl (70-220); POTASSIUM 3.8 mmol/L (3.5-5.1); SODIUM 142 mmol/L (135-144)
[2017-11-18] MEDS: ASPIRIN (EC) 81 MG TAB PO (08:41)
[2017-11-18] MEDS: CLOTRIMAZOLE 1% 30 GM CR TOP ×2 (08:41→23:01)
[2017-11-18] MEDS: RIVAROXABAN 10 MG TABLET PO (08:41)
[2017-11-18] MEDS: DOCUSATE SODIUM 100 MG CAP PO ×2 (08:41→22:52)
[2017-11-18] MEDS: ATENOLOL 25 MG TAB PO (08:42)
[2017-11-18] MEDS: CEFEPIME 1GM/50 ML (PMX) 50 ML IVPB ×2 (08:42→22:45)
[2017-11-18] MEDS: LISINOPRIL 20 MG TAB PO (08:42)
[2017-11-18 16:58] LABS: VANCOMYCIN,TROUGH 16.2 ug/ml (10.0-20.0)
[2017-11-18] MEDS: BALSAM PERU/CASTOR OIL 60 GM TUBE TOP ×2 (16:58→23:01)
[2017-11-18] MEDS: VANCOMYCIN 1.5 GM in SOD CHLORIDE 0.9% 250 ML IVPB (17:24)
[2017-11-18] MEDS: HYDROCODONE/APAP (5/325) TAB PO (19:57)
[2017-11-18] MEDS: ATORVASTATIN 10 MG TAB PO (22:52)
[2017-11-18] MEDS: traZODone 50 MG TAB PO (22:52)
[2017-11-19] MEDS: SOD CHLORIDE 0.9% 1,000 ML IV ×2 (00:18→04:27)
[2017-11-19 05:40] LABS: ADD MAN DIFF? NO
[2017-11-19 05:45] LABS: WHITE BLOOD COUNT 6.4 10^3/ul (4.8-10.8)
[2017-11-19 05:45] LABS: BASOPHILS % 0.6 % (0.0-2.0); EOSINOPHILS # 0.3 10^3/ul (0.0-0.5); EOSINOPHILS % 4.4 % (0.0-7.0); HEMATOCRIT 31.1 % (37.0-47.0); HEMOGLOBIN 10.1 g/dl (12.0-16.0); LYMPHOCYTES # 2.3 10^3/ul (0.8-2.9); LYMPHOCYTES % 36.4 % (15.0-51.0); MEAN CORPUSCULAR HEMOGLOBIN 29.9 pg (29.0-33.0); MEAN CORPUSCULAR HGB CONC 32.5 g/dl (32.0-37.0); MONOCYTE # 0.6 10^3/ul (0.3-0.9); MONOCYTES % 9.7 % (0.0-11.0); NEUTROPHIL # 3.1 10^3/ul (1.6-7.5); NEUTROPHILS % 48.3 % (39.0-77.0); PLATELET COUNT 198 10^3/UL (140-415); RED BLOOD COUNT 3.38 10^6/ul (4.20-5.40); RED CELL DISTRIBUTION WIDTH 12.1 % (11.5-14.5)
[2017-11-19 06:21] LABS: ANION GAP 10 (8-16); BLOOD UREA NITROGEN 15 mg/dl (7-20); CALCIUM 9.1 mg/dl (8.4-10.2); CARBON DIOXIDE 26 mmol/L (21-31); CHLORIDE 111 mmol/L (97-110); CREATININE 1.55 mg/dl (0.44-1.00); GLUCOSE 94 mg/dl (70-220); POTASSIUM 4.1 mmol/L (3.5-5.1); SODIUM 143 mmol/L (135-144)
[2017-11-19] MEDS: RIVAROXABAN 10 MG TABLET PO (09:25)
[2017-11-19] MEDS: LISINOPRIL 20 MG TAB PO (09:25)
[2017-11-19] MEDS: DOCUSATE SODIUM 100 MG CAP PO ×2 (09:25→23:12)
[2017-11-19] MEDS: ASPIRIN (EC) 81 MG TAB PO (09:25)
[2017-11-19] MEDS: ATENOLOL 25 MG TAB PO (09:25)
[2017-11-19] MEDS: CLOTRIMAZOLE 1% 30 GM CR TOP ×2 (09:26→23:13)
[2017-11-19] MEDS: BALSAM PERU/CASTOR OIL 60 GM TUBE TOP ×3 (09:26→23:13)
[2017-11-19] MEDS: CEFEPIME 1GM/50 ML (PMX) 50 ML IVPB ×2 (09:27→23:12)
[2017-11-19] MEDS: ACETAMINOPHEN 1000MG/100ML IV 100 ML IVPB (17:15)
[2017-11-19] MEDS ORDERED: VANCOMYCIN 1.25 GM in SOD CHLORIDE 0.9% 250 ML IVPB (18:00)
[2017-11-19] MEDS: traZODone 50 MG TAB PO (23:12)
[2017-11-19] MEDS: ATORVASTATIN 10 MG TAB PO (23:12)
[2017-11-20] MEDS: SOD CHLORIDE 0.9% 1,000 ML IV (04:31)
[2017-11-20] MEDS: CEFEPIME 1GM/50 ML (PMX) 50 ML IVPB ×2 (09:02→21:10)
[2017-11-20] MEDS: RIVAROXABAN 10 MG TABLET PO (09:02)
[2017-11-20] MEDS: ATENOLOL 25 MG TAB PO (09:02)
[2017-11-20] MEDS: DOCUSATE SODIUM 100 MG CAP PO ×2 (09:02→21:09)
[2017-11-20] MEDS: ASPIRIN (EC) 81 MG TAB PO (09:02)
[2017-11-20] MEDS: BALSAM PERU/CASTOR OIL 60 GM TUBE TOP ×3 (09:04→21:10)
[2017-11-20] MEDS: CLOTRIMAZOLE 1% 30 GM CR TOP ×2 (09:04→21:10)
[2017-11-20] MEDS: traZODone 50 MG TAB PO (21:09)
[2017-11-20] MEDS: ATORVASTATIN 10 MG TAB PO (21:09)
[2017-11-21] MEDS: ATENOLOL 25 MG TAB PO (08:15)
[2017-11-21] MEDS: ASPIRIN (EC) 81 MG TAB PO (08:15)
[2017-11-21] MEDS: DOCUSATE SODIUM 100 MG CAP PO ×2 (08:15→21:09)
[2017-11-21] MEDS: RIVAROXABAN 10 MG TABLET PO (08:15)
[2017-11-21] MEDS: CEFEPIME 1GM/50 ML (PMX) 50 ML IVPB ×2 (08:15→21:07)
[2017-11-21] MEDS: BALSAM PERU/CASTOR OIL 60 GM TUBE TOP ×3 (08:16→21:09)
[2017-11-21] MEDS: CLOTRIMAZOLE 1% 30 GM CR TOP ×2 (08:16→21:10)
[2017-11-21] MEDS: traZODone 50 MG TAB PO (21:09)
[2017-11-21] MEDS: ATORVASTATIN 10 MG TAB PO (21:09)
[2017-11-22] MEDS: LEVOFLOXACIN 500 MG TAB PO (05:37)
[2017-11-22 05:39] LABS: ADD MAN DIFF? NO
[2017-11-22 05:45] LABS: BASOPHIL # 0.1 10^3/ul (0.0-0.1); EOSINOPHILS # 0.3 10^3/ul (0.0-0.5); EOSINOPHILS % 4.4 % (0.0-7.0); HEMATOCRIT 32.5 % (37.0-47.0); HEMOGLOBIN 10.8 g/dl (12.0-16.0); LYMPHOCYTES # 2.2 10^3/ul (0.8-2.9); LYMPHOCYTES % 30.1 % (15.0-51.0); MEAN CORPUSCULAR HEMOGLOBIN 30.1 pg (29.0-33.0); MEAN CORPUSCULAR HGB CONC 33.2 g/dl (32.0-37.0); MEAN CORPUSCULAR VOLUME 90.5 fl (82.0-101.0); MEAN PLATELET VOLUME 10.5 fl (7.4-10.4); MONOCYTE # 0.6 10^3/ul (0.3-0.9); MONOCYTES % 8.5 % (0.0-11.0); NEUTROPHIL # 4.1 10^3/ul (1.6-7.5); NEUTROPHILS % 55.5 % (39.0-77.0); PLATELET COUNT 224 10^3/UL (140-415); RED BLOOD COUNT 3.59 10^6/ul (4.20-5.40); RED CELL DISTRIBUTION WIDTH 12.2 % (11.5-14.5)
[2017-11-22 05:45] LABS: WHITE BLOOD COUNT 7.3 10^3/ul (4.8-10.8)
[2017-11-22 06:24] LABS: ALANINE AMINOTRANSFERASE 20 IU/L (13-69); ALBUMIN 3.7 g/dl (3.3-4.9); ALBUMIN/GLOBULIN RATIO 1.02; ALKALINE PHOSPHATASE 59 IU/L (42-121); ANION GAP 14 (8-16); ASPARTATE AMINO TRANSFERASE 25 IU/L (15-46); BILIRUBIN,INDIRECT 0.5 mg/dl (0-1.1); BILIRUBIN,TOTAL 0.5 mg/dl (0.2-1.3); BLOOD UREA NITROGEN 18 mg/dl (7-20); CALCIUM 9.7 mg/dl (8.4-10.2); CARBON DIOXIDE 28 mmol/L (21-31); CHLORIDE 105 mmol/L (97-110); CREATININE 1.55 mg/dl (0.44-1.00); GLUCOSE 89 mg/dl (70-220); POTASSIUM 3.8 mmol/L (3.5-5.1); SODIUM 143 mmol/L (135-144); TOTAL PROTEIN 7.3 g/dl (6.1-8.1)
[2017-11-22 06:53] LABS: PHOSPHORUS 3.9 mg/dl (2.5-4.9)
[2017-11-22 06:53] LABS: MAGNESIUM 1.5 mg/dl (1.7-2.5)
[2017-11-22] MEDS: CEFEPIME 1GM/50 ML (PMX) 50 ML IVPB (08:16)
[2017-11-22] MEDS: ATENOLOL 25 MG TAB PO (08:16)
[2017-11-22] MEDS: DOCUSATE SODIUM 100 MG CAP PO (08:16)
[2017-11-22] MEDS: RIVAROXABAN 10 MG TABLET PO (08:16)
[2017-11-22] MEDS: BALSAM PERU/CASTOR OIL 60 GM TUBE TOP ×2 (08:16→08:17)
[2017-11-22] MEDS: ASPIRIN (EC) 81 MG TAB PO (08:16)
[2017-11-22] MEDS: CLOTRIMAZOLE 1% 30 GM CR TOP (08:17)
[2017-11-22] MEDS: MAGNESIUM SULFATE 2 GM/50 ML 50 ML IVPB (13:43)
== END 2017-11-22 19:00 | disposition home or self-care (01) | DRG 70 ==
LOC: PP2 11-19 20:40 → E/R 08:51 → PP2 10:14
DX: G93.49 Other encephalopathy (principal); J18.9 Pneumonia, unspecified organism; N17.9 Acute kidney failure, unspecified; M48.54XA Collapsed vertebra, not elsewhere classified, thoracic region, initial encounter for fracture; E87.2 Acidosis; R56.9 Unspecified convulsions; E83.42 Hypomagnesemia; E78.5 Hyperlipidemia, unspecified; F02.80 Dementia in other diseases classified elsewhere, unspecified severity, without behavioral disturbance, psychotic disturbance, mood disturbance, and anxiety; G30.0 Alzheimer's disease with early onset; G25.3 Myoclonus; I12.9 Hypertensive chronic kidney disease with stage 1 through stage 4 chronic kidney disease, or unspecified chronic kidney disease; N18.2 Chronic kidney disease, stage 2 (mild); L30.4 Erythema intertrigo; R09.02 Hypoxemia; R06.89 Other abnormalities of breathing; Z99.81 Dependence on supplemental oxygen; Z74.01 Bed confinement status
CPT/HCPCS: 36415; 70450; 70551; 71045; 71250; 74176; 80048; 80053; 80202; 81001; 82550; 82553; 83605; 83735; 84100; 84484; 85025; 85610; 85730; 86850; 86900; 86901; 87040; 87081; 87086; 92526; 92610; 93005; 93306; 95819; 97163; 99285-25